=== PATIENT | female | born 1970 | race Caucasian/White ===

== ENCOUNTER 2016-05-20 10:39 | Emergency (ER) | payer BC ==
[~2016-05-20] VITALS: Ht 152.4 cm; Wt 76.0 kg
[~2016-05-20 10:39] MED LIST: FLUT1SPR9; LIOT5 PO; MEDR4PAK3 PO
[2016-05-20 10:53] VITALS: BP 143/96; PULSE 82; RESP 18; TEMP 99; O2SAT 99
[2016-05-20] MEDS ORDERED: LEVO75TA3 PO (11:10)
[2016-05-20] MEDS ORDERED: SODIUM CHLORIDE 0.9% FLUSH 5 ML FLUSH IVF PRN (11:45)
--- NOTE | 2016-05-20 12:13 | RADHPO ---
EXAM DATE/TIME: 05/20/2016 11:54 [facility] COMPARISON: CHEST SINGLE AP, April 23, 2015, 6:55. INDICATIONS : Short of breath, discomfort in anterior chest and ribs, pain and numbness in neck and legs MEDICAL HISTORY : Carcinoma, thyroid. SURGICAL HISTORY : thyroidectomy and lymphnodes removed ENCOUNTER: Initial ACUITY: 1 day PAIN SCORE: 7/10 LOCATION: Bilateral chest FINDINGS: A single view of the chest demonstrates the lungs to be symmetrically aerated without evidence of mas s, infiltrate or effusion. The cardiomediastinal contours are unremarkable. Osseous structures are intact. CONCLUSION: No acute cardiopulmonary process. Nito Whitt MD on May 20, 2016 at 12:10 Board Certified Radiologist. This report was verified electronically.
[2016-05-20 12:20] VITALS: O2SAT 98
--- NOTE | 2016-05-20 12:25 | PD ---
HPI Chief Complaint: Pain: Acute or Chronic Time Seen by Provider: 11:22 Travel History International Travel<30 days: No Contact w/Intl Traveler<30days: No Traveled to known affect area: No History of Present Illness HPI Patient is a 46-year-old female who presents to emergency room with multiple complaints. Patient reports that she has history of thyroid cancer and had a thyroidectomy in August 2014. Patient reports that 3 weeks ago, she woke up and had increased pain to the right side her neck. Patient reports that she has pain with range of motion and movement of the neck. Patient denies any trauma to the neck, denies any injury, reports that she did follow up with her primary care doctor as well as her poultry pinner and told her that she may have just muscle strain. Patient reports that she is not taking any medication for relief of symptoms. Patient denies cervical radiculopathy. Patient reports concerns as she noticed some burning sensations to her bilateral thumbs which is intermittent in nature, reports no symptoms at this time. Patient also reports that for the past month, she has had a pinching sensation to her chest. Reports that she is located to her right chest, reports that she feels a sharp stabbing pinching sensation which comes on by itself and resolves with a second. Reports that symptoms have been intermittent in nature, patient currently has no chest pain. Patient with no history of hypertension, hyperlipidemia, coronary disease. Denies chest pain or sob at this time. Patient also concerned as she had 2 episodes of diarrhea within the past month. Patient reports that she has no abdominal pain at this time, reports that she had one episode of diarrhea on Tuesday. Patient reports that she is currently not on any medications including antibiotics at this time. Patient request to know why she had diarrhea. Denies n/v. Denies fever/chills. No recent travels/ trips. Patient also concerned about her varicose veins. Patient believes that her varicose veins in her right lower extremity appear bigger than normal. Reports that she has been having intermittent cramping to her RLE - patient concerned that she may have a DVT and request ultrasound of her leg. PFSH Past Medical History Cardiovascular Problems: Yes (PALPATATIONS) Chemotherapy: Yes (RADIATION IN OCTOBER 2014) Endocrine: Yes Gastrointestinal Disorders: Yes (GERD) Hypertension: No Medical other: No Musculoskeletal: Yes (ARTHRITIS ANKLES) Neurologic: Yes (HEADACHES) Psychiatric: Yes ( ANXIETY) Respiratory: Yes (ASTHMA YOUTH) Thyroid Disease: Yes (NODULES,THYROIDECTOMY) Influenza Vaccination: No ?: Not LMP: August : 0 Past Surgical History Body Medical Devices: HARDWARE BEV. ANKLES Joint Replacement: No Other Surgery: Yes (thyroidectomy) Social History Alcohol Use: No Tobacco Use: No Substance Use: No Allergies-Medications (Allergen,Severity, Reaction): Coded Allergies: Aspirin (Verified Allergy, Severe, ANAPHYLAXIS, 05/20/16) Codeine (Verified Allergy, Severe, SYNCOPE, THROAT SWELLING, 05/20/16) Contrast Media (Verified Allergy, Severe, Rash, 05/20/16) Nonsteroidal Anti-Inflammatory Agts (Verified Allergy, Severe, 05/20/16) ANAPHYLAXIS Vicodin (Verified Allergy, Severe, THROAT SWELLING, DYSPNEA, SYNCOPE, ) Penicillin (Verified Allergy, Intermediate, Swelling, 05/20/16) Uncoded Allergies: SURGICAL SCRUB (Allergy, Severe, 02/28/15) Reported Meds & Prescriptions Reported Meds & Active Scripts Active Reported Levothyroxine (Levothyroxine Sodium) 75 Mcg Tab 75 Mcg PO DAILY Review of Systems General / Constitutional: No: Fever Eyes: No: Visual changes HENT: Positive: Neck Pain, No: Headaches, Neck Stiffness Cardiovascular: Positive: Palpitations, No: Chest Pain or Discomfort Respiratory: No: Cough, Shortness of Breath Gastrointestinal: Positive: Diarrhea, No: Nausea, Vomiting, Abdominal Pain Genitourinary: No: Urgency, Frequency, Dysuria Musculoskeletal: Positive: Cramping, No: Pain Skin: No Rash Neurologic: No: Weakness Psychiatric: No: Depression Endocrine: No: Polydipsia Hematologic/Lymphatic: No: Easy Bruising Physical Exam Narrative GENERAL: NAD, Nontoxic SKIN: Warm and dry. HEAD: Atraumatic. Normocephalic. EYES: Pupils equal and round. No scleral icterus. No injection or drainage. ENT: No nasal bleeding or discharge. Mucous membranes pink and moist. NECK: Trachea midline. No JVD. patient with right sided paraspinal muscle tenderness, pt with tenderness with ROM of neck, no midline tenderness CARDIOVASCULAR: Regular rate and rhythm. No murmur appreciated. RESPIRATORY: No accessory muscle use. Clear to auscultation. Breath sounds equal bilaterally. GASTROINTESTINAL: Abdomen soft, non-tender, nondistended. Hepatic and splenic margins not palpable. MUSCULOSKELETAL: No obvious deformities. No clubbing. No cyanosis. No edema. patient with left calf tenderness. pt does have varicose veins to b/l le's, pulses intact. NEUROLOGICAL: Awake and alert. No obvious cranial nerve deficits. Motor grossly within normal limits. Normal speech. PSYCHIATRIC: anxious Data Data Last Documented VS Vital Signs Date Time Temp Pulse Resp B/P Pulse Ox O2 Delivery O2 Flow Rate FiO2 05/20/16 14:13 77 18 132/88 100 Room Air 05/20/16 10:53 99.0 Orders Electrocardiogram (05/20/16 11:44) Ckmb (Isoenzyme) Profile (05/20/16 11:44) Complete Blood Count With Diff (05/20/16 11:44) Comprehensive Metabolic Panel (05/20/16 11:44) Magnesium (Mg) (05/20/16 11:44) Prothrombin Time / Inr (Pt) (05/20/16 11:44) Act Partial Throm Time (Ptt) (05/20/16 11:44) Troponin I (05/20/16 11:44) Chest, Single Ap (05/20/16 11:44) Ecg Monitoring (05/20/16 11:44) Iv Access Insert/Monitor (05/20/16 11:44) Oximetry (05/20/16 11:44) Sodium Chloride 0.9% Flush (Ns Flush) (05/20/16 11:45) Ct Cerv Spine W/O Contrast (05/20/16 ) Us Leg Venous Doppler Bilat (05/20/16 ) Ed Urine Pregnancytest Poc (05/20/16 11:44) MDM Medical Decision Making Medical Screen Exam Complete: Yes Emergency Medical Condition: Yes Interpretation(s) Vital Signs Date Time Temp Pulse Resp B/P Pulse Ox O2 Delivery O2 Flow Rate FiO2 05/20/16 10:53 99.0 82 18 143/96 99 EKG at 1202: NSR at 72bpm, qt/qtc: 384/405, no acute st or t wave changes Differential Diagnosis cervical strain, cervical tumor, cervical radiculopathy, dvt, pe, acs, arrhythmia, hypothyroidism, anxiety reaction Narrative Course Patient is a 46-year-old female with multiple complaints. Overall vital signs are stable. As per patient's muscle strain, patient reports pain to her neck right-sided her neck for the past 3 weeks, patient with no midline cervical spine tenderness , no radiculopathy, CT ordered for further evaluation of symptoms or possible causes for neck strain. Patient also with complaining of sharp stabbing chest pain/contusion sensation to her right chest which is intermittent in nature and lasts for 1 second on a time. EKG as well as cardiac enzymes ordered. Patient also with intermittent diarrhea for the past month, patient with no abdominal pain at this time, labs obtained to evaluate for possible dehydration. Patient with cramping and pain to bilateral extremities, patient sent for DVT, ultrasound ordered to evaluate for possible DVT. Patient refusing labwork at this time, patient reports that she had left performed at her primary care doctors office a week ago, will not have labs repeated as she does not want to incur extra cost. Patient stands that she will be leaving AMA as I can't do a full workup on her at this time. I did review all all the studies with patient in detail. Understands need for repeat ultrasound of leg since 1 week if swelling persists. Signs and symptoms of when to return to the emergency room was reviewed patient. Patient understands that she may return to the emergency room at any time should she have return of symptoms or if she should wish to have symptoms re-evaluated AMA: The risks of leaving against medical advice without further evaluation treatment were discussed with the patient. These risks include cardiac dysfunction, cardiac dysrhythmia, possible heart attack, possible stroke or . The patient indicated understanding of these risks and appeared to have the capacity to make this decision. Diagnosis Primary Impression: Cervical strain Qualified Code: S16.1XXA - Cervical strain, initial encounter Additional Impressions: Leg cramping Qualified Code: R25.2 - Cramp of both lower extremities Chest pain Qualified Code: R07.9 - Chest pain, unspecified type Additional Instructions: Please provide patient with a copy of her studies at discharge Please follow-up with your primary care doctor as soon as possible Return to emergency room as needed her symptoms progress or worsen Please have the ultrasound of your leg repeated in 1 week if symptoms continue Disposition: 07 AGAINST MEDICAL ADVICE Jinny Turner DO May 20, 2016 12:25
--- NOTE | 2016-05-20 13:10 | RADHPO ---
EXAM DATE/TIME: 05/20/2016 12:22 [facility] COMPARISON: No previous studies available for comparison. INDICATIONS : Pain in bilateral legs. MEDICAL HISTORY : Carcinoma, thyroid. Arthritis. GERD. Tinnitis. Radiation. Asthma. SURGICAL HISTORY : Thyroidectomy. Right rotator cuff. Bilateral ankle surgery. ENCOUNTER: Initial ACUITY: 1 month PAIN SCORE: 4/10 LOCATION: Bilateral legs. TECHNIQUE: Venous ultrasound of the left and right leg was performed from the inguinal ligament to the proximal calf. Real-time, color Doppler and spectral tracing, compression and augmentation techniques were us ed. FINDINGS: RIGHT LEG: There is normal compressibility of the deep venous system from the inguinal region to the proximal ca lf. No echogenic clot is seen in the lumen of the common femoral, femoral, popliteal, and posterior tibial veins. There is a normal response of the venous system to proximal and distal augmentation an d respiration. LEFT LEG: There is normal compressibility of the deep venous system from the inguinal region to the proximal ca lf. No echogenic clot is seen in the lumen of the common femoral, femoral, popliteal, and posterior tibial veins. There is a normal response of the venous system to proximal and distal augmentation an d respiration. CONCLUSION: No evidence of deep venous thrombosis within the lower extremities. Silas Calzada MD on May 20, 2016 at 13:08 Board Certified Radiologist. This report was verified electronically.
--- NOTE | 2016-05-20 13:43 | RADHPO ---
EXAM DATE/TIME: 05/20/2016 13:24 [facility] COMPARISON: No previous studies available for comparison. INDICATIONS : Right neck pain x 3 weeks. No known trauma. RADIATION DOSE: 25.50 CTDIvol (mGy) MEDICAL HISTORY : Carcinoma, thyroid. Gastroesophageal reflux disease. SURGICAL HISTORY : Thyroidectomy. ENCOUNTER: Initial ACUITY: 3 weeks PAIN SCALE: 6/10 LOCATION: Right neck TECHNIQUE: Volumetric scanning of the cervical spine was performed. Multiplanar reconstructions in the sagittal, coronal and oblique axial planes were performed. Using automated exposure control and adjustment o f the mA and/or kV according to patient size, radiation dose was kept as low as reasonably achievable to obtain optimal diagnostic quality images. FINDINGS: VERTEBRAE: Normal vertebral body height. ALIGNMENT: No evidence of subluxation. C2-C3: The bony spinal canal is normal in size. No evidence of disc bulge or herniation. The neural forami na are bilaterally patent. C3-C4: The bony spinal canal is normal in size. No evidence of disc bulge or herniation. The neural forami na are bilaterally patent. C4-C5: The bony spinal canal is normal in size. No evidence of disc bulge or herniation. The neural forami na are bilaterally patent. C5-C6: The bony spinal canal is normal in size. No evidence of disc bulge or herniation. The neural forami na are bilaterally patent. C6-C7: The bony spinal canal is normal in size. No evidence of disc bulge or herniation. The neural forami na are bilaterally patent. C7-T1: The bony spinal canal is normal in size. No evidence of disc bulge or herniation. The neural forami na are bilaterally patent. CONCLUSION: Unremarkable exam. Pa Loyd MD on May 20, 2016 at 13:39 Board Certified Radiologist. This report was verified electronically.
[2016-05-20 14:13] VITALS: BP 132/88; PULSE 77; RESP 18; O2SAT 100
--- NOTE | 2016-05-21 18:07 | EKG ---
Date Performed: 05/20/2016 Time Performed: 12:02:20 PTAGE: 46 years EKG: Sinus rhythm rSr'(V1) - probable normal variant Anterior T wave changes are nonspecific Low QRS voltages in preco rdial leads Since previous tracing, no significant change noted Borderline ECG PREVIOUS TRACING : 09/16/2015 11.22 DOCTOR: Alfonso Robles Interpretating Date/Time 05/21/2016 18:07:03
== END 2016-05-20 14:27 | disposition left against medical advice (07) ==
LOC: PHED 10:39 → PHEFT 14:27
DX: S16.1XXA Strain of muscle, fascia and tendon at neck level, initial encounter (principal); R07.9 Chest pain, unspecified; R25.2 Cramp and spasm; X58.XXXA Exposure to other specified factors, initial encounter; Y93.89 Activity, other specified; Y99.9 Unspecified external cause status
CPT/HCPCS: 71010; 72125; 84703; 93005; 93970

== ENCOUNTER 2016-08-22 06:02 | Emergency (ER) | payer BC ==
[~2016-08-22] VITALS: Ht 152.4 cm; Wt 75.0 kg
[~2016-08-22 06:02] MED LIST changes: -FLUT1SPR9; +LEVO75TA3 PO; -LIOT5 PO; -MEDR4PAK3 PO
[2016-08-22 06:15] VITALS: BP 115/81; PULSE 91; RESP 18; TEMP 98; O2SAT 100
[2016-08-22 06:24] VITALS: BP 115/81; PULSE 91; RESP 18; TEMP 98; O2SAT 100
[2016-08-22] MEDS ORDERED: SODIUM CHLOR 0.9% 1000 ML INJ 1,000 ML IV SCH (06:33)
[2016-08-22] MEDS ORDERED: ONDANSETRON HCL 4 MG/2 ML VIAL IVP ONE (06:45)
[2016-08-22] MEDS ORDERED: SODIUM CHLORIDE 0.9% FLUSH 10 ML FLUSH IV FLUSH PRN (06:45)
[2016-08-22] MEDS ORDERED: PANTOPRAZOLE SODIUM 40 MG VIAL IVP ONE (06:45)
[2016-08-22] MEDS ORDERED: FAMOTIDINE 20 MG/2 ML VIAL IV PUSH ONE (06:45)
--- NOTE | 2016-08-22 06:48 | PD ---
HPI Chief Complaint: GI Complaint Time Seen by Provider: 06:33 Travel History International Travel<30 days: No Contact w/Intl Traveler<30days: No Traveled to known affect area: No History of Present Illness HPI The patient is a 46-year-old female that has been vomiting since Tuesday. She also has diarrhea. She is successful in holding down some water, this is her only fluid replacement she has used. She does feel dizzy without vertigo. She denies any blood in the stool or vomitus. She denies any fever. She denies any history of bowel problems with herself or family, any history of foreign travel recently, well water ingestion, recent antibiotics and does not have any abdominal pain. PFSH Past Medical History Cardiovascular Problems: Yes (PALPATATIONS) Chemotherapy: Yes (RADIATION IN OCTOBER 2014) Diminished Hearing: No Endocrine: Yes Gastrointestinal Disorders: Yes (GERD) Hypertension: No Musculoskeletal: Yes (ARTHRITIS ANKLES) Neurologic: Yes (HEADACHES) Psychiatric: Yes ( ANXIETY) Respiratory: Yes (ASTHMA YOUTH) Thyroid Disease: Yes (NODULES,THYROIDECTOMY) Tetanus Vaccination: < 5 Years Influenza Vaccination: No ?: Not LMP: 08/2014 : 0 Past Surgical History Body Medical Devices: HARDWARE BEV. ANKLES Joint Replacement: No Other Surgery: Yes (thyroidectomy) Social History Alcohol Use: No Tobacco Use: No Substance Use: No Allergies-Medications (Allergen,Severity, Reaction): Coded Allergies: Aspirin (Verified Allergy, Severe, ANAPHYLAXIS, 08/22/16) Codeine (Verified Allergy, Severe, SYNCOPE, THROAT SWELLING, 08/22/16) Contrast Media (Verified Allergy, Severe, Rash, 08/22/16) Nonsteroidal Anti-Inflammatory Agts (Verified Allergy, Severe, 08/22/16) ANAPHYLAXIS Vicodin (Verified Allergy, Severe, THROAT SWELLING, DYSPNEA, SYNCOPE, 08/22) Penicillin (Verified Allergy, Intermediate, Swelling, 08/22/16) Uncoded Allergies: SURGICAL SCRUB (Allergy, Severe, 02/28/15) Reported Meds & Prescriptions Reported Meds & Active Scripts Active Reported Levothyroxine (Levothyroxine Sodium) 75 Mcg Tab 75 Mcg PO DAILY Review of Systems Except as stated in HPI: all other systems reviewed are Neg Physical Exam Narrative GENERAL: The patient is alert, slightly dehydrated-appearing, oriented 3 and slight apparent distress with her nausea. Her vital signs show heart rate of 91 but are otherwise normal. SKIN: Focused skin assessment warm/dry. No skin rash is seen. HEAD: Atraumatic. Normocephalic. EYES: Pupils equal and round. No scleral icterus. No injection or drainage. ENT: No nasal bleeding or discharge. Mucous membranes pink and moist. The tympanic membranes are clear and the throat is clear. NECK: Trachea midline. No JVD. There is no meningismus present. CARDIOVASCULAR: Regular rate and rhythm. No murmur appreciated. RESPIRATORY: No accessory muscle use. Clear to auscultation. Breath sounds equal bilaterally. GASTROINTESTINAL: Abdomen soft, nontender, nondistended. Hepatic and splenic margins not palpable. No guarding or rebound is present. MUSCULOSKELETAL: No obvious deformities. No clubbing. No cyanosis. No edema. NEUROLOGICAL: Awake and alert. No obvious cranial nerve deficits. Motor grossly within normal limits. Normal speech. PSYCHIATRIC: Appropriate mood and affect; insight and judgment normal. Data Data Last Documented VS Vital Signs Date Time Temp Pulse Resp B/P Pulse Ox O2 Delivery O2 Flow Rate FiO2 08/22/16 07:05 97 08/22/16 06:28 18 08/22/16 06:24 98.0 91 115/81 Orders Beta Hcg (Quant/Titer) (08/22/16 06:33) Complete Blood Count With Diff (08/22/16 06:33) Comprehensive Metabolic Panel (08/22/16 06:33) Lipase (08/22/16 06:33) Urinalysis - C+S If Indicated (08/22/16 06:33) Iv Access Insert/Monitor (08/22/16 06:33) Ecg Monitoring (08/22/16 06:33) Oximetry (08/22/16 06:33) Ondansetron Inj (Zofran Inj) (08/22/16 06:45) Pantoprazole Inj (Protonix Inj) (08/22/16 06:45) Sodium Chlor 0.9% 1000 Ml Inj (Ns 1000 M (08/22/16 06:33) Sodium Chloride 0.9% Flush (Ns Flush) (08/22/16 06:45) Famotidine Inj (Pepcid Inj) (08/22/16 06:45) Labs Laboratory Tests Test 08/22/16 07:00 White Blood Count 6.2 TH/MM3 Red Blood Count 4.50 MIL/MM3 Hemoglobin 13.1 GM/DL Hematocrit 39.0 % Mean Corpuscular Volume 86.7 FL Mean Corpuscular Hemoglobin 29.0 PG Mean Corpuscular Hemoglobin 33.5 % Concent Red Cell Distribution Width 12.5 % Platelet Count 304 TH/MM3 Mean Platelet Volume 7.5 FL Neutrophils (%) (Auto) 60.1 % Lymphocytes (%) (Auto) 24.3 % Monocytes (%) (Auto) 8.9 % Eosinophils (%) (Auto) 2.3 % Basophils (%) (Auto) 4.4 % Neutrophils # (Auto) 3.7 TH/MM3 Lymphocytes # (Auto) 1.5 TH/MM3 Monocytes # (Auto) 0.6 TH/MM3 Eosinophils # (Auto) 0.1 TH/MM3 Basophils # (Auto) 0.3 TH/MM3 CBC Comment DIFF FINAL Differential Comment Urine pH 5.5 Urine Protein 30 mg/dL Urine Glucose (UA) NEG mg/dL Urine Ketones TRACE mg/dL Urine Occult Blood LARGE Urine Nitrite NEG Urine Bilirubin NEG Urine Leukocyte Esterase NEG MDM Medical Decision Making Medical Screen Exam Complete: Yes Emergency Medical Condition: Yes Medical Record Reviewed: Yes Differential Diagnosis Gastroenteritis, pancreatitis, colitis, dehydration, electrolyte disorder, hypo- /hyperglycemia Narrative Course It is now 0714 and the patient is transferred to Dr. De La Cruz. Farhad Mandujano MD August 22, 2016 06:48 Farhad Mandujano MD August 22, 2016 06:48
[2016-08-22 07:05] VITALS: O2SAT 97
[2016-08-22 07:08] LABS: AUTOMATED NEUTROPHIL # 3.7 TH/MM3 (1.8-7.7); BASOPHIL # 0.3 TH/MM3 (0-0.2); BASOPHIL % 4.4 % (0.0-2.0); EOSINOPHIL # 0.1 TH/MM3 (0-0.4); EOSINOPHIL % 2.3 % (0.0-4.0); HEMO FLAGS DIFF FINAL; LYMPH % 24.3 % (9.0-44.0); LYMPHOCYTE # 1.5 TH/MM3 (1.0-4.8); MEAN CELL VOLUME 86.7 FL (80.0-100.0); MEAN CORPUSCULAR HGB CONC 33.5 % (32.0-36.0); MONO % 8.9 % (0.0-8.0); NEUT % 60.1 % (16.0-70.0); PLATELET COUNT 304 TH/MM3 (150-450); RED CELL DISTRIBUTION WIDTH 12.5 % (11.6-17.2); WHITE BLOOD COUNT 6.2 TH/MM3 (4.0-11.0)
[2016-08-22 07:09] LABS: BLOOD, URINE LARGE (NEG); GLUCOSE,URINE NEG (NEG); KETONE, URINE TRACE mg/dL (NEG); NITRITE,URINE NEG (NEG); PH, URINE 5.5 (5.0-8.5)
[2016-08-22 07:18] LABS: METHOD OF COLLECTION CLEAN CATCH; URINE COLOR YELLOW (YELLW/STRAW)
[2016-08-22 07:19] LABS: COMMENT (UR) CULT NOT INDICATED; CULTURE IF INDICATED CULT NOT INDICATED; RBC, URINE 0-3 /hpf (0-3)
[2016-08-22 07:21] LABS: CHLORIDE 104 MEQ/L (98-107); POTASSIUM 3.6 MEQ/L (3.5-5.1); SODIUM (NA) 139 MEQ/L (136-145)
[2016-08-22 07:25] LABS: ANION GAP 8 MEQ/L (5-15); BICARBONATE 26.9 MEQ/L (21.0-32.0); BLOOD UREA NITROGEN 13 MG/DL (7-18)
[2016-08-22 07:27] LABS: ALT (GPT) 26 U/L (10-53)
[2016-08-22 07:28] LABS: AST (GOT) 29 U/L (15-37); GLOMERULAR FILTRATION RATE 76 ML/MIN (>89)
[2016-08-22 07:29] LABS: TOTAL BILIRUBIN ADULT 0.3 MG/DL (0.2-1.0)
[2016-08-22 07:30] LABS: ALKALINE PHOSPHATASE 66 U/L (45-117)
[2016-08-22 07:33] LABS: BETA HCG QUANT 3 MIU/ML (0-5)
--- NOTE | 2016-08-22 09:33 | PD ---
Physical Exam Narrative Received pt from previous team to follow up labs and reevaluate. 46yo F with nausea and vomiting since Tuesday. Pt has no abdominal pain or fever. Labs reviewed, no leukocytosis. CMP unremarkable. negative. UA showed trace ketones and large blood. Culture not indicated. Abdominal exam reassuring. Pt given NS IVF and feels better. Return precautions given. Data Data Last Documented VS Vital Signs Date Time Temp Pulse Resp B/P Pulse Ox O2 Delivery O2 Flow Rate FiO2 08/22/16 07:05 97 08/22/16 06:28 18 08/22/16 06:24 98.0 91 115/81 Orders Beta Hcg (Quant/Titer) (08/22/16 06:33) Complete Blood Count With Diff (08/22/16 06:33) Comprehensive Metabolic Panel (08/22/16 06:33) Lipase (08/22/16 06:33) Urinalysis - C+S If Indicated (08/22/16 06:33) Iv Access Insert/Monitor (08/22/16 06:33) Ecg Monitoring (08/22/16 06:33) Oximetry (08/22/16 06:33) Ondansetron Inj (Zofran Inj) (08/22/16 06:45) Pantoprazole Inj (Protonix Inj) (08/22/16 06:45) Sodium Chlor 0.9% 1000 Ml Inj (Ns 1000 M (08/22/16 06:33) Sodium Chloride 0.9% Flush (Ns Flush) (08/22/16 06:45) Famotidine Inj (Pepcid Inj) (08/22/16 06:45) Labs Laboratory Tests Test 08/22/16 07:00 White Blood Count 6.2 TH/MM3 Red Blood Count 4.50 MIL/MM3 Hemoglobin 13.1 GM/DL Hematocrit 39.0 % Mean Corpuscular Volume 86.7 FL Mean Corpuscular Hemoglobin 29.0 PG Mean Corpuscular Hemoglobin 33.5 % Concent Red Cell Distribution Width 12.5 % Platelet Count 304 TH/MM3 Mean Platelet Volume 7.5 FL Neutrophils (%) (Auto) 60.1 % Lymphocytes (%) (Auto) 24.3 % Monocytes (%) (Auto) 8.9 % Eosinophils (%) (Auto) 2.3 % Basophils (%) (Auto) 4.4 % Neutrophils # (Auto) 3.7 TH/MM3 Lymphocytes # (Auto) 1.5 TH/MM3 Monocytes # (Auto) 0.6 TH/MM3 Eosinophils # (Auto) 0.1 TH/MM3 Basophils # (Auto) 0.3 TH/MM3 CBC Comment DIFF FINAL Differential Comment Urine Collection Type CLEAN CATCH Urine Color YELLOW Urine Turbidity CLOUDY Urine pH 5.5 Urine Specific [place] 1.025 Urine Protein 30 mg/dL Urine Glucose (UA) NEG mg/dL Urine Ketones TRACE mg/dL Urine Occult Blood LARGE Urine Nitrite NEG Urine Bilirubin NEG Urine Leukocyte Esterase NEG Urine RBC 0-3 /hpf Urine Amorphous Sediment LARGE Microscopic Urinalysis Comment CULT NOT INDICATED Sodium Level 139 MEQ/L Potassium Level 3.6 MEQ/L Chloride Level 104 MEQ/L Carbon Dioxide Level 26.9 MEQ/L Anion Gap 8 MEQ/L Blood Urea Nitrogen 13 MG/DL Creatinine 0.81 MG/DL Estimat Glomerular Filtration 76 ML/MIN Rate Random Glucose 93 MG/DL Calcium Level 8.4 MG/DL Total Bilirubin 0.3 MG/DL Aspartate Amino Transf 29 U/L (AST/SGOT) Alanine Aminotransferase 26 U/L (ALT/SGPT) Alkaline Phosphatase 66 U/L Total Protein 8.1 GM/DL Albumin 3.7 GM/DL Lipase 201 U/L Human Chorionic Gonadotropin, 3 MIU/ML Quant MDM Supervised Visit with TAYLOR: No Diagnosis Primary Impression: Gastroenteritis Patient Instructions: General Instructions Departure Forms: Tests/Procedures Additional Instruction: Please follow up with your PMD in 3-7 days. Return to the ED if symptoms worsen. Med/Other Pt SpecificInfo: No Change to Meds Disposition: 01 DISCHARGE HOME Condition: Stable Anna Marie De La Cruz August 22, 2016 09:33
[2016-08-22 09:38] VITALS: BP 117/79; PULSE 76; RESP 14; O2SAT 97
== END 2016-08-22 09:43 | disposition home or self-care (01) ==
LOC: PHED 06:02
DX: K52.9 Noninfective gastroenteritis and colitis, unspecified (principal); R42 Dizziness and giddiness; E07.9 Disorder of thyroid, unspecified; Z86.79 Personal history of other diseases of the circulatory system; Z87.19 Personal history of other diseases of the digestive system; Z87.39 Personal history of other diseases of the musculoskeletal system and connective tissue; Z86.69 Personal history of other diseases of the nervous system and sense organs; Z86.59 Personal history of other mental and behavioral disorders
CPT/HCPCS: 80053; 81001; 83690; 84702; 85025; 96360; 96361; 99284; J7030